=== PATIENT | male | born 1955 | race Caucasian/White ===

== ENCOUNTER 2021-08-03 10:29 | Emergency (ER) | payer MEDICARE, OTHER ==
[~2021-08-03 10:29] MED LIST: DILANTIN PO; ETOMIDATE (2MG/ML) 20ML VIAL IV ONE
[2021-08-03] MEDS ORDERED: MIDAZOLAM HCL 5 MG/ML-1ML VIAL ONE (10:30)
[2021-08-03] MEDS ORDERED: MIDAZOLAM DRIP 50 mg/50mL 50 ML IV ONE (10:32)
[2021-08-03] MEDS ORDERED: fentaNYL Drip 2500mCg/250mlNS 250 ML IV ONE (10:49)
[2021-08-03 11:06] VITALS: BP 107/62
[2021-08-03] MEDS ORDERED: fentaNYL Drip 2500mCg/250mlNS 250 ML IV SCH (11:15)
[2021-08-03] MEDS ORDERED: MIDAZOLAM HCL 5 MG/ML-1ML VIAL IV ONE (11:15)
[2021-08-03] MEDS ORDERED: MIDAZOLAM DRIP 50 mg/50mL 50 ML IV SCH (11:15)
== END 2021-08-03 11:51 | disposition short-term general hospital (02) ==
LOC: EDBD 10:29 → EDUNIT# 10:29 → ER 10:29
DX: S09.90XA Unspecified injury of head, initial encounter (principal); I46.9 Cardiac arrest, cause unspecified; I47.2 Ventricular tachycardia; Z79.899 Other long term (current) drug therapy; W18.39XA Other fall on same level, initial encounter; Y93.89 Activity, other specified; Y92.89 Other specified places as the place of occurrence of the external cause; Y99.8 Other external cause status
CPT/HCPCS: 31500; 92950; 99291; J2250; 94002